=== PATIENT | male | born 1975 | race Caucasian/White ===

== ENCOUNTER 2020-04-08 15:12 | Emergency (ER) | payer OTHER | END 2020-04-08 15:43 | LOC: ER 15:13 | DX: F15.10 Other stimulant abuse, uncomplicated (principal); F12.90 Cannabis use, unspecified, uncomplicated; F17.200 Nicotine dependence, unspecified, uncomplicated; Z00.8 Encounter for other general examination; Z72.89 Other problems related to lifestyle; V89.2XXA Person injured in unspecified motor-vehicle accident, traffic, initial encounter; Y93.89 Activity, other specified; Y92.89 Other specified places as the place of occurrence of the external cause; Y99.8 Other external cause status | CPT/HCPCS: 99283 ==